=== PATIENT | female | born 1965 | race Two or more races ===

== ENCOUNTER 2021-08-16 11:01 | Emergency (ER) | payer OTHER ==
[~2021-08-16] VITALS: Ht 144.8 cm; Wt 95.3 kg
[2021-08-16 12:09] VITALS: BP 145/90
[2021-08-16] MEDS ORDERED: ACETAMINOPHEN 325 MG TAB PO ONE (12:30)
[2021-08-16] MEDS ORDERED: ACE3T PO (12:32)
== END 2021-08-16 13:19 | disposition home or self-care (01) ==
LOC: ER 11:01
DX: S83.91XA Sprain of unspecified site of right knee, initial encounter (principal); E11.9 Type 2 diabetes mellitus without complications; I10 Essential (primary) hypertension; W19.XXXA Unspecified fall, initial encounter; Y93.89 Activity, other specified; Y92.89 Other specified places as the place of occurrence of the external cause; Y99.8 Other external cause status
CPT/HCPCS: 73562

== ENCOUNTER 2023-09-11 15:47 | Emergency (ER) | payer OTHER ==
[~2023-09-11] VITALS: Ht 152.4 cm; Wt 103.1 kg
[~2023-09-11 15:47] MED LIST: AMIT100T6 PO; ATOR20TA50 PO; BACL10TA PO; BACL20TA PO; DICL50TA4 PO; DULO1CAP5 PO; ENAL1TAB47 PO; GLIP5TAB21 PO; HYDR-4611; HYDRX10T PO; LEVO500T91 PO; LID35TP TOP; LIDO1.8P TOP; MET500T PO; METF-371 PO; METO-289 PO; PREG150C63 PO; QUET50TA27 PO; ZOFR4T PO
[2023-09-11 16:28] LABS: Basophils # (auto) 0 10 ^3/uL (0-0.2); Basophils % (auto) 0.2 % (0.0-2.0); Eosinophils # (auto) 0.1 10 ^3/uL (0-0.8); Eosinophils % (auto) 1.1 % (0.0-7.0); Hematocrit 39.5 % (36.0-46.0); Hemoglobin 13.3 g/dL (12.2-16.2); Lymphocytes # (auto) 1.1 10 ^3/uL (0.4-5.4); Lymphocytes % (auto) 9.2 % (10.0-50.0); Mean Corpuscular Hemoglobin 29.2 pg (28.0-32.0); Mean Corpuscular Hgb Conc. 33.6 g/dL (32.0-36.0); Mean Corpuscular Volume 86.9 fL (80.0-100.0); Monocytes # (auto) 0.4 10 ^3/uL (0-1.3); Monocytes % (auto) 3.5 % (0.0-12.0); Neutrophils # (auto) 10.2 10 ^3/uL (1.6-8.6); Red Blood Cells 4.55 10^6/uL (4.0-5.20); Red Cell Distribution Width 13.8 % (11.8-14.3); White Blood Cell 11.8 10^3/uL (4.4-10.8)
[2023-09-11 16:57] LABS: Alanine Aminotransferase 32 U/L (7-40); Albumin 4.5 g/dL (3.2-4.8); Alkaline Phosphatase 174 U/L (46-116); Anion Gap 9 (5-15); Aspartate Aminotransferase 19 U/L (13-40); BUN/Creatinine Ratio 9.6 (10.0-20.0); Bilirubin, Total 0.6 mg/dL (0.2-1.0); Blood Urea Nitrogen 9 mg/dL (9-23); Calcium 9.7 mg/dL (8.7-10.4); Carbon Dioxide 24 mmol/L (20-30); Chloride 103 mmol/L (98-107); Glucose 265 mg/dL (74-106); Lipase 27 U/L (12-53); Potassium 3.5 mmol/L (3.5-5.1); Sodium 136 mmol/L (136-145); Total Protein 7.5 g/dL (5.7-8.2)
[2023-09-11 18:22] LABS: Urine Bacteria FEW /hpf (None Seen); Urine Blood Negative /uL (Negative); Urine Budding Yeast OCCASIONAL /hpf (None Seen); Urine Clarity Turbid (Clear); Urine Color Yellow (Yellow); Urine Hyaline Cast MANY /lpf (0 - 2); Urine Mucus FEW (None Seen); Urine Protein, UAD 1+ (Negative); Urine Specific Gravity 1.027 (1.001-1.035); Urine Urobilinogen 4 mg/dL (Negative); Urine WBC 24 /hpf (0 - 5); Urine pH 5.5 (5.0-9.0)
[2023-09-11] MEDS ORDERED: CEPH500C PO (19:24)
[2023-09-11] MEDS ORDERED: ZOFR4T PO (19:24)
[2023-09-11] MEDS ORDERED: IBUP1TAB5 PO (19:24)
[2023-09-11] MEDS: SODIUM CHLORIDE 0.9% 1,000 ML IV ONE (19:49)
[2023-09-11] MEDS: cefTRIAXone 1GM/50ML D5W 50 ML IV ONE (19:55)
[2023-09-11] MEDS: DICYCLOMINE HCL (10MG/ML) 2 ML AMPULE IM ONE (20:00)
[2023-09-11] MEDS: PANTOPRAZOLE 40 MG/10 ML VIAL INJ IV ONE (20:06)
[2023-09-11] MEDS: diphenhdrAMINE HCL 50 MG/1 ML VL IV ONE (20:06)
[2023-09-11] MEDS: ONDANSETRON HCL 4 MG/2 ML VIAL IV ONE (20:06)
[2023-09-11 20:40] VITALS: BP 146/85; PULSE 105; RESP 12; TEMP 97.9; O2SAT 96
== END 2023-09-11 19:16 | disposition home or self-care (01) ==
LOC: ER 15:47
DX: R16.2 Hepatomegaly with splenomegaly, not elsewhere classified (principal); N39.0 Urinary tract infection, site not specified; R10.33 Periumbilical pain; R51.9 Headache, unspecified; I10 Essential (primary) hypertension; E11.9 Type 2 diabetes mellitus without complications; Z98.890 Other specified postprocedural states; Z79.899 Other long term (current) drug therapy
CPT/HCPCS: 36415; 74176; 80053; 81001; 83690; 85025; 96365; 96372; 96375; 99285; C9113; J0500; J0696; J1200; J2405

== ENCOUNTER 2024-09-24 12:51 | Inpatient (IN) | payer OTHER ==
[~2024-09-24] VITALS: Ht 152.4 cm; Wt 106.0 kg
[~2024-09-24 12:51] MED LIST changes: +CEPH500C PO; +IBUP1TAB5 PO
--- NOTE | 2024-09-24 13:18 | ED.PDOC ---
General HPI Comments 59 y/o F, with PMHx of HTN and DM presents to the ED for CC of flank pain. Patient states, she has been experiencing flank pain with associated symptoms of of dysuria and vaginal itchiness xdays. Patient complains,of current 10/10 pain with urination. Patient denies hematuria, back pain, fever, or chills. No other symptoms or modifying factors present at this time. Time Seen by MD: 13:00 Primary Care Provider: MAL Reviewed notes: Nurses Notes, Medications, Allergies Allergies: Coded Allergies: NO KNOWN ALLERGIES (Unverified , 08/16/21) Home Meds Active Scripts Ondansetron Odt 4MG Tab (ZOFRAN PO) 4 Mg Tb, 1 TAB PO Q8HPRN PRN, #10 TAB as needed for nausea vomiting ODT TAB-DISSOLVE IN MOUTH, THEN SWALLOW Prov:GAYLEFERNANDAALDA Q [employer] 09/11/23 Ibuprofen Micronized (Ibuprofen) 600 Mg Tab, 1 TAB PO Q8HPRN PRN, #20 TAB as needed for pain Prov:BENI GAYLEA Q [employer] 09/11/23 Cephalexin Monohydrate (Cephalexin) 500 Mg Cap, 1 CAP PO QID for 10 Days, #40 CAP Prov:GAYLEFERNANDAALDA Q [employer] 09/11/23 Ondansetron Odt 4MG Tab (ZOFRAN PO) 4 Mg Tb, 4 MG PO Q8HPRN PRN, #30 TAB ODT TAB-DISSOLVE IN MOUTH, THEN SWALLOW Prov:KERRY CARDOZO MD 10/13/22 Levofloxacin Hemihydrate (LEVOFLOXACIN) 500 Mg Tab, 1 TAB PO DAILY, #10 TAB Prov:KERRY CARDOZO MD 10/13/22 Metronidazole (Metronidazole) 500 Mg Tab, 500 MG PO TID, #30 TAB Prov:KERRY CARDOZO MD 10/13/22 Reported Medications Hydrocodone-Acetaminophen (Hydrocodone Bitartrate/AC 10-300 mg) 1 Tab Tab 10/01/22 Atorvastatin Calcium (ATORVASTATIN CALCIUM) 20 Mg Tab, 1 TAB PO 10/01/22 Metoprolol Succinate (Metoprolol Succinate Er) 50 Mg Tab, 1 TAB PO DAILY 10/01/22 Glipizide (Glipizide) 5 Mg Tab, 1 TAB PO DAILY 10/01/22 Diclofenac Sodium (Diclofenac Sodium Ec) 50 Mg Tab, 1 TAB PO TID PRN for pain 10/01/22 Amitriptyline Hcl (Amitriptyline Hcl) 100 Mg Tab, 1 TAB PO 10/01/22 Lidocaine (Ztlido) 1.8 % Pad, 1 PATCH TOP DAILY 10/01/22 Lidocaine Hcl (Lidocaine) 5 % Oin, TOP 10/01/22 Enalapril Maleate (Enalapril Maleate) 10 Mg Tab, 1 TAB PO DAILY 10/01/22 Metformin Hydrochloride (Metformin Hcl) 850 Mg Tab, 1 TAB PO BID 10/01/22 Baclofen (Baclofen) 20 Mg Tab, 1 PO DAILY 10/01/22 Baclofen (Baclofen) 10 Mg Tab, 1 TAB PO for muscle spasm 10/01/22 Duloxetine HCl (Duloxetine HCl) 30 Mg Cap, 3 CAP PO DAILY 10/01/22 Hydroxyzine Hcl (Hydroxyzine Hcl) 10 Mg Tab, 1 TAB PO TID 10/01/22 Quetiapine Fumerate (QUETIAPINE FUMARATE) 50 Mg Tab, PO 10/01/22 Pregabalin (Pregabalin) 150 Mg Cap, 1 CAP PO TID 10/01/22 Information Source: Patient Mode of Arrival: Ambulatory Severity: Moderate Inability to void: None Timing: Days Duration: Since onset Prehospital treatment: None Onset: Spontaneous Symptoms: Dysuria History of: None Location: (L)Flank Modifying factors: None associated signs and symptoms: Flank Pain Past Medical History PAST MEDICAL HISTORY: DM, HTN Surgical History: Cholecystectomy, [employer] History: Denies all [employer] Hx Family History Family History: Unknown Social History Smoker: Non-Smoker Alcohol: Denies ETOH Use Drugs: Denies Drug Use Lives In: Home Constitutional: denies: chills, diaphoresis, fatigue, fever, malaise, sweats, weakness, others EENTM: denies: blurred vision, double vision, ear bleeding, ear discharge, ear drainage, ear pain, ear ringing, eye pain, eye redness, hearing loss, mouth pain, mouth swelling, nasal discharge, nose bleeding, nose congestion, nose pain, photophobia, tearing, throat pain, throat swelling, voice changes, others Respiratory: denies: cough, hemoptysis, orthopnea, SOB at rest, shortness of breath, SOB with excertion, stridor, wheezing, others Cardiovascular: denies: chest pain, dizzy spells, diaphoresis, Dyspnea on exertion, edema, irregular heart beat, left arm pain, lightheadedness, palp itations, PND, syncope, others Gastrointestinal: denies: abdomen distended, abdominal pain, blood streaked bowels, constipated, diarrhea, dysphagia, difficulty swallowing, hematemesis, melena, nausea, poor appetite, poor fluid intake, rectal bleeding, rectal pain, vomiting, others Genitourinary: reports: dysuria, flank pain, others (vaginal itch); denies: abnormal vagina bleeding, burning, dyspareunia, frequency, hematuria, incontinence, pain, , vagina discharge, urgency Neurological: denies: dizziness, fainting, headache, left sided numbness, left sided weakness, numbness, paresthesia, pre-existing deficit, right sided num bness, right sided weakness, seizure, speech problems, tingling, tremors, weakness, others Musculoskeletal: denies: back pain, gout, joint pain, joint swelling, muscle pain, muscle stiffness, neck pain, others Integumetry: denies: bruises, change in color, change in hair/nails, dryness, laceration, lesions, lumps, rash, wounds, others Allergic/Immunocompromised: denies: Difficulty Healing, Frequent Infections, Hives, Itching, others Hematologic/Lymphatic: denies: anemia, blood clots, easy bleeding, easy bruising, swollen glands, others Endocrine: denies: excessive hunger, excessive sweating, excessive thirst, excessive urination, flushing, intolerance to cold, intolerance to heat, unexplained weight gain, unexplained weight loss, others Psychiatric: denies: anxiety, bipolar disorder, depression, hopeless, panic disorder, schizophrenia, sleepless, suicidal, others All Other Systems: Reviewed and Negative Physical Exam General Appearance: Moderate Distress HEENT: Normal ENT Inspection, Pharynx Normal, TMs Normal Neck: Full Range of Motion, Non-Tender, Normal, Normal Inspection Respiratory: Chest Non-Tender, Lungs Clear, No Accessory Muscle Use, No Respiratory Distress, Normal Breath Sounds Cardiovascular: No Edema, No JVD, No Murmur, No Gallop, Normal Peripheral Pulses, Regular Rate/Rhythm Breast Exam: Deferred Gastrointestinal: No Organomegaly, Non Tender, No Pulsatile Mass, Normal Bowel Sounds, Soft Genitalia: Deferred Pelvic: Deferred Rectal: Deferred Extremities: No calf tenderness, Normal capillary refill, Normal inspection, Normal range of motion, Non-tender, No pedal edema Musculoskeletal : Apperance: Normal Neurologic: Alert, channeler runner II-XII nml as Tested, No Motor Deficits, Normal Affect, Normal Mood, No Sensory Deficits Cerebellar Function: Normal Reflexes: Normal Skin: Dry, Normal Color, Warm Peripheral Pulses: 3+ Radial (R), 3+ Radial (L) Lymphatic: No Adenopathy Was a procedure done? Was a procedure done?: No Differential Diagnosis Kidney stone (Female): Pyelonephritis, Urinary obstruction, Urolithiasis Kidney stone (Male): N/A Penile/Scrotal: N/A Urinary Problem (Male): N/A Urinary Problem (Female): Vaginitis X-Ray, Labs, Meds, VS Vital Signs Date Time Temp Pulse Resp B/P (MAP) Pulse Ox O2 Delivery O2 Flow Rate FiO2 09/24/24 14:18 118 16 96 Room Air* 0 21 09/24/24 14:11 118 16 142/89 (106) 96 09/24/24 13:00 98.6 135 20 122/74 (90) 95 98.6 Lab Test 09/24/24 13:19 09/24/24 13:00 Range/Units White Blood Count 8.6 4.4-10.8 10^3/uL Red Blood Count 5.21 H 4.0-5.20 10^6/uL Hemoglobin 15.1 12.2-16.2 g/dL Hematocrit 44.9 36.0-46.0 % Mean Corpuscular Volume 86.1 80.0-100.0 fL Mean Corpuscular Hemoglobin 28.9 28.0-32.0 pg Mean Corpuscular Hemoglobin Concent 33.6 32.0-36.0 g/dL Red Cell Distribution Width 14.3 11.8-14.3 % Platelet Count 264 140-450 10^3/uL Mean Platelet Volume 9.7 6.9-10.8 fL Neutrophils (%) (Auto) 64.5 37.0-80.0 % Lymphocytes (%) (Auto) 28.8 10.0-50.0 % Monocytes (%) (Auto) 3.4 0.0-12.0 % Eosinophils (%) (Auto) 2.7 0.0-7.0 % Basophils (%) (Auto) 0.6 0.0-2.0 % Neutrophils # (Auto) 5.5 1.6-8.6 10 ^3/uL Lymphocytes # (Auto) 2.5 0.4-5.4 10 ^3/uL Monocytes # (Auto) 0.3 0-1.3 10 ^3/uL Eosinophils # (Auto) 0.2 0-0.8 10 ^3/uL Basophils # (Auto) 0.1 0-0.2 10 ^3/uL Nucleated Red Blood Cells 0.1 % Sodium Level 137 136-145 mmol/L Potassium Level 3.9 3.5-5.1 mmol/L Chloride Level 100 98-107 mmol/L Carbon Dioxide Level 26 20-31 mmol/L Anion Gap 11 5-15 Blood Urea Nitrogen 8 L 9-23 mg/dL Creatinine 0.95 0.550-1.02 mg/dL Glomerular Filtration Rate Calc 70 >90 mL/min BUN/Creatinine Ratio 8.4 L 10.0-20.0 Serum Glucose 299 H 74-106 mg/dL Calcium Level 9.7 8.7-10.4 mg/dL Urine Color Light-orange Yellow Urine Clarity Ex.turbid Clear Urine pH 5.5 5.0-9.0 Urine Specific [place] 1.025 1.001-1.035 Urine Protein 1+ H Negative Urine Ketones Trace Negative Urine Blood Trace H Negative /uL Urine Nitrite 2+ H Negative Urine Bilirubin Negative Negative Urine Urobilinogen Normal Negative mg/dL Urine Leukocyte Esterase 3+ Negative /uL Urine RBC 7 0 - 4 /hpf Urine WBC Clumps Present None Seen /hpf Urine Microscopic WBC 1699 H 0-5 /HPF Urine Squamous Epithelial Cells Many <5 /hpf Urine Bacteria Few H None Seen /hpf Urine Hyaline Casts Mod 0 - 2 /lpf Urine Mucus Few None Seen Urine Glucose 4+ H Normal mg/dL Current Medications Medications (Trade) Dose Ordered Sig/Ngoc Route Start Time Stop Time Status Last Admin Ketorolac Tromethamine (Toradol Injection) 60 mg ONCE ONCE IM 09/24/24 13:15 09/24/24 13:16 DC 09/24/24 14:16 Patient alert. Complaining of urinary symptoms. Vitals stable. Answering questions. Blood sugar elevated. Urinalysis shows severe infection. Establish intravenous access. Was given fluids. Was given Bactrim. WBC within normal limits. Explained to the patient that she will need to be admitted because of the nature of her infection. Continue monitoring. Time of 1ST Reevaluation: 13:30 Reevaluation 1ST: Unchanged Patient Education/Counseling: Diagnosis, Treatment Family Education/Counseling: No Family Present SEPSIS Sepsis Screen Physician Orders Zofran (09/24/24 14:30) 0.9% Nacl 1 Liter Bolus (09/24/24 14:30) Morphine Sulfate (09/24/24 14:30) Urine Bacterial Culture (09/24/24 14:26) 0.9% Ns 30mls/Kg (09/24/24 14:30) Bactrim Iv Septra Sulfam/Trim (09/24/24 14:30) Vital Signs Date Time Temp Pulse Resp B/P (MAP) Pulse Ox O2 Delivery O2 Flow Rate FiO2 09/24/24 14:18 118 16 96 Room Air* 0 21 09/24/24 14:11 118 16 142/89 (106) 96 09/24/24 13:00 98.6 135 20 122/74 (90) 95 98.6 Laboratory Tests Test 09/24/24 13:19 White Blood Count 8.6 10^3/uL (4.4-10.8) Medications Medications Dose Ordered Sig/Ngoc Route Start Time Stop Time Status Last Admin Dose Admin Ketorolac Tromethamine 60 mg ONCE ONCE IM 09/24/24 13:15 09/24/24 13:16 DC 09/24/24 14:16 Departure 1 Departure Time of Disposition: 13:39 Impression: Primary Impression: Uncontrolled diabetes mellitus Qualified Codes: E13.65 - Other specified diabetes mellitus with hyperglycemia Additional Impression: Sepsis due to urinary tract infection Disposition: ADMITTED INPATIENT Admit to: Med Surg Condition: Guarded Critical Care Note Critical Care Time?: No Stability Stability form required: No Heart Score Heart Score: Heart Score Response (Comments) Value History N/A 0 EKG N/A 0 Age N/A 0 Risk Factors N/A 0 Troponin N/A 0 Total 0 I personally scribed for KAYKAY SCOTT MD ([email or web address]) on 09/24/24 at 13:18. Electronically submitted by Nivia Amaya ([email or web address]). KAYKAY SCOTT MD Sep 24, 2024 13:18
[2024-09-24 13:37] LABS: Hematocrit 44.9 % (36.0-46.0); Hemoglobin 15.1 g/dL (12.2-16.2); Mean Corpuscular Hemoglobin 28.9 pg (28.0-32.0); Mean Corpuscular Volume 86.1 fL (80.0-100.0); Nucleated Red Blood Cells % 0.1 %
[2024-09-24 13:42] LABS: Chloride 100 mmol/L (98-107); Potassium 3.9 mmol/L (3.5-5.1); Sodium 137 mmol/L (136-145)
[2024-09-24 13:43] LABS: Anion Gap 11 (5-15); Calcium 9.7 mg/dL (8.7-10.4); Carbon Dioxide 26 mmol/L (20-31)
[2024-09-24 13:48] LABS: BUN/Creatinine Ratio 8.4 (10.0-20.0)
[2024-09-24 13:49] LABS: Blood Urea Nitrogen 8 mg/dL (9-23); Glucose 299 mg/dL (74-106)
[2024-09-24 14:02] LABS: Urine Protein, UAD 1+ (Negative); Urine WBC Clumps PRESENT /hpf (None Seen)
[2024-09-24] MEDS: KETOROLAC TROMETH 60MG/2ML VIAL IM ONE (14:16)
[2024-09-24 14:18] VITALS: PULSE 118; RESP 16; O2SAT 96
[2024-09-24] MEDS: SODIUM CHLORIDE 0.9% 1,000 ML IV ONE (15:35)
[2024-09-24] MEDS: SODIUM CHLORIDE 0.9% 1,000 ML IVB ONE (16:15)
[2024-09-24] MEDS: ONDANSETRON HCL 4 MG/2 ML VIAL IV ONE (16:16)
[2024-09-24] MEDS: MORPHINE SULFATE 4 MG/ML SYR/VIAL IV ONE (16:17)
[2024-09-24] MEDS: SULFAMETH-TRIMETH 80/16MG-ML 10 ML in D5W 5% 250 ML IV ONE (16:26)
[2024-09-24] MEDS ORDERED: ONDANSETRON HCL 4 MG/2 ML VIAL IV PRN (17:00)
[2024-09-24] MEDS ORDERED: DEXTROSE (50%) 50ML SYRG IV PRN (17:00)
[2024-09-24] MEDS ORDERED: DOCUSATE SOD 100 MG CAP PO PRN (17:00)
[2024-09-24] MEDS ORDERED: hydrALAZINE HCL 20 MG/ML VL IV PRN (17:00)
--- NOTE | 2024-09-24 17:48 | DVHHP2 ---
History of Present Illness Reason for Visit: Uncontrolled diabetes mellitus History of Present Illness The patient is a 59-year-old female with past medical history of diabetes mellitus, hypertension, and hyperlipidemia who presented to [facility] ED with complaint of flank pain. Patient reports she has been exper iencing flank pain for the past 4 days, associated with dysuria, vaginal itching, rating pain 10/10 numeric scale with urination, shortness of breaths, getting worse that prompted this visit. Patient was seen and evaluated in the ED, laboratory data shows WBC 8.6, platelets 264, sodium 137, potassium 3.9, BUN 8, creatinine 0.95, glucose 299, calcium 9.7, blood pressure 148/86, heart rate 135 trending down to 72, temperature 97.6 F, O2 saturation 96% on oxygen. Urinalysis positive for urinary tract infection. Patient was started on IV antibiotic regimen Rocephin, please see medication orders section in the computer. On my assessment, patient denied chest pain, no headache, no dizziness, currently on oxygen, no abdominal pain, no diarrhea, no nausea, no vomiting, no fever, no chills. Patient was admitted for further evaluation and medical management. Past Medical History DM, HTN Past Surgical History Cholecystectomy, Family History Reviewed, noncontributory to the management of this case. Past Social History The patient lives at home, denies smoking, alcohol or illicit drugs abuse. Review of Systems Constitutional: Yes: Weakness; No: Fever, Chills, Sweats, Malaise, Other Eyes: No: Pain, Vision change, Conjunctivae inflammation, Eyelid inflammation, Other, Redness ENT: No: Ear pain, Ear discharge, Nose pain, Nose discharge, Nose congestion, Mouth pain, Mouth swelling, Throat pain, Throat swelling, Other Respiratory: Shortness of breath; No: Cough, Dry, SOB with excertion, Wheezing, Hemoptysis, Pleuritic Pain, Sputum, Wheezing, Other Cardiovascular: No: Chest Pain, Palpitations, Orthopnea, Paroxysmal Noc. Dyspnea, Edema, Lt Headedness, Other Gastrointestinal: No: Nausea, Vomiting, Abdominal Pain, Diarrhea, Constipation, Melena, Hematochezia, Other Genitourinary: Dysuria; No Frequency, No Incontinence, No Hematuria, No Retention; Other (Flank pain, vaginal itch.) Musculoskeletal: No: other, neck pain, shoulder pain, arm pain, back pain, hand pain, leg pain, foot pain Skin: No: Rash, Lesions, Jaundice, Bruising, Other Neurological: No: Weakness, Numbness, Incoordination, Change in speech, Confusion, Seizures, Other Allergies: Coded Allergies: NO KNOWN ALLERGIES (Unverified , 08/16/21) Medications Current Medications Medications Dose Ordered Sig/Ngoc Route Start Time Stop Time Status Last Admin Dose Admin Atorvastatin Calcium 20 mg HS PO 09/24/24 22:00 Hydralazine HCl 10 mg Q6HP PRN IV 09/24/24 17:00 Metoprolol Tartrate 25 mg BID PO 09/24/24 22:00 Amlodipine Besylate 5 mg DAILY PO 09/25/24 10:00 Ceftriaxone Sodium 50 ml @ 100 mls/hr DAILY@09 IV 09/25/24 09:00 Diagnostic Test (Pha) 1 strip IQ4HR 09/24/24 20:00 Insulin Human Regular IQ4HR SC 09/24/24 20:00 Dextrose 50 ml UD PRN IV 09/24/24 17:00 Sodium Chloride 1,000 ml @ 60 mls/hr [id number] IV 09/24/24 17:00 Acetaminophen/ Hydrocodone Bitart 1 tab Q4HP PRN PO 09/24/24 17:00 Ondansetron HCl 4 mg Q4HP PRN IV 09/24/24 17:00 Docusate Sodium 100 mg BIDPRN PRN PO 09/24/24 17:00 Acetaminophen 650 mg Q6HP PRN PO 09/24/24 17:00 Exam Vital Signs Vital Signs Date Time Temp Pulse Resp B/P (MAP) Pulse Ox O2 Delivery O2 Flow Rate FiO2 09/24/24 16:17 71 18 148/86 09/24/24 16:08 97.8 96 97.8 09/24/24 16:08 Nasal Cannula 2.0 09/24/24 14:18 21 General Appearance: Alert, Oriented X3, Cooperative, No acute distress HEENT: Atraumatic, PERRLA, EOMI, Mucous membr. moist/pink Respiratory: Normal air movement, Other (On oxygen) Cardiovascular: Regular rate, Normal S1, Normal S2, No murmurs Abdominal: Normal bowel sounds, Soft, No tenderness, No hepatospenomegaly, No masses Extremities: No clubbing, No cyanosis, No edema, Normal pulses, No t enderness/swelling Skin: No rashes, No breakdown, No significant lesion Neuro: Normal speech, Normal tone, Sensation intact, Cranial nerves 3-12 NL, Reflexes 2+, Other (Generalized weakness) Psych/Mental Status: Mental status NL, Mood NL Labs/Xrays Labs Test 09/24/24 13:19 09/24/24 13:00 Range/Units White Blood Count 8.6 4.4-10.8 10^3/uL Red Blood Count 5.21 H 4.0-5.20 10^6/uL Hemoglobin 15.1 12.2-16.2 g/dL Hematocrit 44.9 36.0-46.0 % Mean Corpuscular Volume 86.1 80.0-100.0 fL Mean Corpuscular Hemoglobin 28.9 28.0-32.0 pg Mean Corpuscular Hemoglobin Concent 33.6 32.0-36.0 g/dL Red Cell Distribution Width 14.3 11.8-14.3 % Platelet Count 264 140-450 10^3/uL Mean Platelet Volume 9.7 6.9-10.8 fL Neutrophils (%) (Auto) 64.5 37.0-80.0 % Lymphocytes (%) (Auto) 28.8 10.0-50.0 % Monocytes (%) (Auto) 3.4 0.0-12.0 % Eosinophils (%) (Auto) 2.7 0.0-7.0 % Basophils (%) (Auto) 0.6 0.0-2.0 % Neutrophils # (Auto) 5.5 1.6-8.6 10 ^3/uL Lymphocytes # (Auto) 2.5 0.4-5.4 10 ^3/uL Monocytes # (Auto) 0.3 0-1.3 10 ^3/uL Eosinophils # (Auto) 0.2 0-0.8 10 ^3/uL Basophils # (Auto) 0.1 0-0.2 10 ^3/uL Nucleated Red Blood Cells 0.1 % Sodium Level 137 136-145 mmol/L Potassium Level 3.9 3.5-5.1 mmol/L Chloride Level 100 98-107 mmol/L Carbon Dioxide Level 26 20-31 mmol/L Anion Gap 11 5-15 Blood Urea Nitrogen 8 L 9-23 mg/dL Creatinine 0.95 0.550-1.02 mg/dL Glomerular Filtration Rate Calc 70 >90 mL/min BUN/Creatinine Ratio 8.4 L 10.0-20.0 Serum Glucose 299 H 74-106 mg/dL Calcium Level 9.7 8.7-10.4 mg/dL Urine Color Light-orange Yellow Urine Clarity Ex.turbid Clear Urine pH 5.5 5.0-9.0 Urine Specific [place] 1.025 1.001-1.035 Urine Protein 1+ H Negative Urine Ketones Trace Negative Urine Blood Trace H Negative /uL Urine Nitrite 2+ H Negative Urine Bilirubin Negative Negative Urine Urobilinogen Normal Negative mg/dL Urine Leukocyte Esterase 3+ Negative /uL Urine RBC 7 0 - 4 /hpf Urine WBC Clumps Present None Seen /hpf Urine Microscopic WBC 1699 H 0-5 /HPF Urine Squamous Epithelial Cells Many <5 /hpf Urine Bacteria Few H None Seen /hpf Urine Hyaline Casts Mod 0 - 2 /lpf Urine Mucus Few None Seen Urine Glucose 4+ H Normal mg/dL Assessment/Plan Assessment/Plan Uncontrolled diabetes mellitus Sinus tachycardia Shortness of breaths Generalized weakness Urinary tract infection Other specified diabetes mellitus with hyperglycemia Plan 1. Admit to telemetry unit 2. Breathing treatment 3. Pain control management 4. IV antibiotic management 5. Management of fluids and electrolytes 6. Consultation for hospitalist 7. Diagnostic test chest x-ray 8. DVT prophylaxis on SCDs 9. Repeat labs CBC, CMP in a.m. 10. Home medication reviewed and reconciled 11. Continue with current medical management 12. Treatment plan discussed with patient and RN. Patient verbalized under standing. Plan discussed with: Patient, Other (RN) My Orders Orders - ALBERT FRAZIER DNP Procedure Category Date Status Time Atorvastatin (Lipitor) PHA 09/24/24 In Process 22:00 Hydralazine Injection PHA 09/24/24 In Process (Apresoline Inject 17:00 Metoprolol Tartrate PHA 09/24/24 In Process Tablet (Lopressor Ta 22:00 Amlodipine Tablet PHA 09/25/24 In Process (Norvasc Tablet) 10:00 Ceftriaxone 1gm/50ml PHA 09/25/24 In Process D5w (Rocephin) 09:00 Consistent DIET 09/24/24 Transmitted Carb(Ccho)Diabetes Dinner Glucose Blood PHA 09/24/24 In Process (Accu-Chek Comfort 20:00 Insulin R (Human) PHA 09/24/24 In Process (Insulin R) 20:00 Dextrose 50% Syringe PHA 09/24/24 In Process 17:00 Allergies HELIO 09/24/24 In Process 16:49 Code Status CODE 09/24/24 Transmitted 16:49 Sodium Chloride 0.9% PHA 09/24/24 In Process 17:00 Oxygen Per Hour RT 09/24/24 Transmitted 16:49 Hydrocodone-Acet PHA 09/24/24 In Process 5/325mg Tab ([place] 17:00 Ondansetron Hcl PHA 09/24/24 In Process (Zofran) 17:00 Docusate Sodium PHA 09/24/24 In Process Capsule (Colace 17:00 Complete Blood Count LAB 09/25/24 Verified 04:00 Comprehensive LAB 09/25/24 Verified Metabolic Panel 04:00 Condition: Serious HELIO 09/24/24 In Process 16:49 Acetaminophen Tablet [facility] 09/24/24 In Process (Tylenol Tablet) 17:00 Bedrest With Bathroom HELIO 09/24/24 In Process Privileg 16:49 Sequential [facility] 09/24/24 In Process Compression Device Admit ADMIT 09/24/24 Verified 17:47 Nitroglycerin [facility] 09/24/24 Verified Sublingual (Ntrostat 18:00 Morphine Sulfate [facility] 09/24/24 Verified Injection 18:00 Stat Ekg For Chest [facility] 09/24/24 Verified Pain 17:47 Notify Md Of Changes [facility] 09/24/24 Verified From Base 17:47 Automatic Centrifugal Station Operator For [facility] 09/24/24 Verified 24 Hours 17:47 Emergency Dysrhythmia [facility] 09/24/24 Verified Protocol 17:47 Rhythm Strips Once [facility] 09/24/24 Verified Every Shift 17:47 Oxygen By Nasal 09/24/24 Verified Cannula 17:47 Problem List: (1) Uncontrolled diabetes mellitus (2) Shortness of breath (3) Sinus tachycardia (4) Urinary tract infection (5) Generalized weakness (6) Other specified diabetes mellitus with hyperglycemia Date of Service: Sep 24, 2024 Billing Provider: ALBERT FRAZIER DNP Common Visit Codes: [id number] INP/OBS CARE (HIGH) ALBERT FRAZIER DNP Sep 24, 2024 17:48
[2024-09-24] MEDS ORDERED: NITROGLYCERIN 0.4 MG SL TAB SL PRN (18:00)
[2024-09-24] MEDS ORDERED: MORPHINE SULFATE INJ 2 MG/ml SYRG IV PRN (18:00)
[2024-09-24] MEDS: SODIUM CHLORIDE 0.9% 1,000 ML IV SCH (19:17)
[2024-09-24] MEDS: ACCU-CHEK COMFORT CURVE STRIP VI SCH (20:13)
[2024-09-24] MEDS: HYDROcodone-ACET 5/325MG TAB PO PRN (20:14)
[2024-09-24] MEDS: InsuLIN REG 1unit/0.01ml Soln (100units/ml) SC SCH (20:14)
[2024-09-24 22:43] VITALS: BP 127/71; PULSE 85; RESP 18; TEMP 98.3; O2SAT 98
[2024-09-24 23:09] VITALS: RESP 18; O2SAT 96
[2024-09-24] MEDS: ATORVASTATIN 20 MG TAB PO SCH (23:58)
[2024-09-24] MEDS: METOPROLOL TARTRATE 25 MG TAB PO SCH (23:59)
[2024-09-25 01:00] VITALS: BP 111/72; PULSE 76; RESP 18; TEMP 97.4; O2SAT 98
[2024-09-25 05:00] VITALS: BP 94/56; PULSE 71; RESP 17; TEMP 97; O2SAT 96
[2024-09-25 05:51] LABS: Hematocrit 40.3 % (36.0-46.0); Hemoglobin 13.5 g/dL (12.2-16.2); Mean Corpuscular Hemoglobin 29.0 pg (28.0-32.0); Mean Corpuscular Volume 86.3 fL (80.0-100.0); Nucleated Red Blood Cells % 0.0 %
[2024-09-25 06:10] LABS: Alanine Aminotransferase 22 U/L (7-40); Albumin 3.8 g/dL (3.2-4.8); Anion Gap 7 (5-15); BUN/Creatinine Ratio 14.0 (10.0-20.0); Bilirubin, Total 0.5 mg/dL (0.2-1.0); Blood Urea Nitrogen 15 mg/dL (9-23); Carbon Dioxide 29 mmol/L (20-31); Chloride 100 mmol/L (98-107); Potassium 3.6 mmol/L (3.5-5.1); Sodium 136 mmol/L (136-145); Total Protein 6.1 g/dL (5.7-8.2)
[2024-09-25 06:20] LABS: Alkaline Phosphatase 125 U/L (46-116); Calcium 8.5 mg/dL (8.7-10.4); Glucose 116 mg/dL (74-106)
[2024-09-25 09:00] VITALS: BP 102/71; PULSE 78; RESP 19; TEMP 97.2; O2SAT 98
[2024-09-25] MEDS: cefTRIAXone 1GM/50ML D5W 50 ML IV SCH (09:31)
[2024-09-25 10:38] LABS: Cholesterol 153 mg/dL (< 200)
[2024-09-25 10:39] LABS: HDL Cholesterol 33 mg/dL (40-59); Triglycerides 230 mg/dL (< 150)
[2024-09-25] MEDS ORDERED: DEXTROSE (50%) 50ML SYRG IV PRN (10:45)
[2024-09-25] MEDS: ACCU-CHEK COMFORT CURVE STRIP VI SCH (11:42)
[2024-09-25] MEDS: InsuLIN REG 1unit/0.01ml Soln (100units/ml) SC SCH ×2 (11:42→21:55)
[2024-09-25] MEDS: FLUCONAZOLE 100 MG TAB PO ONE (11:43)
[2024-09-25 13:00] VITALS: BP 102/65; PULSE 73; RESP 18; TEMP 97.3; O2SAT 95
[2024-09-25] MEDS ORDERED: hydrALAZINE HCL 20 MG/ML VL IV PRN (15:30)
[2024-09-25] MEDS ORDERED: MORPHINE SULFATE INJ 2 MG/ml SYRG IV PRN (15:45)
--- NOTE | 2024-09-25 15:47 | DVHPNRES ---
Progress Note Date Seen: Sep 25, 2024 Resident Creating Document: DANIEL LATIF RESIDENT Medical Necessity Reason Pt with a Central, PICC or Fol: No Subjective Review of Systems Kerline Blackburn a 59-year-old female with past medical history of diabetes mellitus, hypertension, hyperlipidemia and shortness of breath (on home oxygen- 2 liter via nasal cannula) came to the emergency department yesterday with complaints of flank pain. It started 4 days ago and was gradual in onset, non- radiating, rated 10/ 10 in intensity, associated with dysuria, vaginal itching, which worsened and prompted this visit. Patient denies any aggravating or relieving factors. she denies any chest pain, headache, dizziness, diarrhea, vomiting, nausea, fever, chills. PMH: DM, HTN PSH: Cholecystectomy, 3 C - sections, 3 back surgeries for sciatica with metal rods placed in the back Family history: reviewed noncontributory to the management of this case Social history: The patient lives at home with her son and [id number]. she denies smoking, alcohol or illicit drug abuse. Allergies: None ROS: Patient was seen and examined by me in the bedside. She reports improvement in abdominal pain but the vaginal itching is still a lot. Rest of the ROS is normal. Objective vital signs Vital Sign Date Time Temp Pulse Resp B/P (MAP) Pulse Ox O2 Delivery O2 Flow Rate FiO2 09/25/24 13:00 97.3 73 18 102/65 (77) 95 97.3 09/24/24 23:09 Nasal Cannula* 2 28 Total Intake and Output 09/24/24 09/24/24 09/25/24 15:00 23:00 07:00 Intake Total 1260 ml 200 ml Balance 1260 ml 200 ml medications Current Medications Medications Dose Ordered Sig/Ngoc Route Start Time Stop Time Status Last Admin Dose Admin Atorvastatin Calcium 20 mg HS PO 09/24/24 22:00 09/24/24 23:58 20 MG Hydralazine HCl 10 mg Q6HP PRN IV 09/24/24 17:00 Metoprolol Tartrate 25 mg BID PO 09/24/24 22:00 09/25/24 09:31 25 MG Amlodipine Besylate 5 mg DAILY PO 09/25/24 10:00 09/25/24 09:31 5 MG Ceftriaxone Sodium 50 ml @ 100 mls/hr DAILY@09 IV 09/25/24 09:00 09/25/24 09:31 100 MLS/HR Acetaminophen/ Hydrocodone Bitart 1 tab Q4HP PRN PO 09/24/24 17:00 09/25/24 05:24 1 TAB Ondansetron HCl 4 mg Q4HP PRN IV 09/24/24 17:00 Docusate Sodium 100 mg BIDPRN PRN PO 09/24/24 17:00 Acetaminophen 650 mg Q6HP PRN PO 09/24/24 17:00 Nitroglycerin 0.4 mg Q5MINP PRN SL 09/24/24 18:00 Morphine Sulfate 2 mg Q30M PRN IV 09/24/24 18:00 Diagnostic Test (Pha) 1 strip ACHS 09/25/24 11:30 09/25/24 11:42 1 STRIP Insulin Human Regular HS SC 09/25/24 22:00 Insulin Human Regular AC SC 09/25/24 11:30 09/25/24 11:42 6 UNITS Dextrose 50 ml UD PRN IV 09/25/24 10:45 Examination Pt is lying on bed General Appearance: Alert, Oriented X3, Cooperative, Not in acute distress HEENT: Atraumatic, Mucous membranes moist/pink, on 2 liters oxygen via nasal cannula Respiratory: Clear to auscultation, Normal air movement, No added sounds Cardiovascular: Regular rate, Normal S1, Normal S2, No murmurs Abdominal: Active bowel sounds, Soft, no distention, no tenderness, suprapubic and left lower quadrant tenderness present Extremities: No edema, Normal pulses, No tenderness/swelling Skin: No Significant rash, except past surgical scars Neuro: Normal speech, sensorimotor deficits none Psych/Mental Status: Mental status NL, Mood NL Vaginal: mucous membranes moist, hyperemia present, minimal white thin discharge Nurse Malorie was there as form tamping machine operator during examination laboratory and microbiology Laboratory Tests 09/25/24 05:08 Test 09/25/24 05:08 Range/Units Serum Glucose 116 H 74-106 mg/dL Microbiology Date/Time Source Procedure Growth Status 09/24/24 13:00 Voided Urine Urine Culture - Preliminary Resulted Labs and/or images reviewed: Labs reviewed by me, Image(s) reviewed by me Problem List/Assessment/Plan Problem List/Assessment/Plan # Acute complicated UTI - Evident on urinalysis - IVF administered - Rocephin 1 g daily - Urine culture, >100,000 CFU/mL Gram Negative Rods # Vaginal candidiasis possibly due to DM - Fluconazole 200 mg 1 tab given # Uncontrolled DM (HbA1c, 10.8) - Patient was moderate sliding scale insulin - continuously monitor blood glucose - Lipid profile ordered # Essential Hypertension - Closely monitor blood pressure - Amlodipine 5 mg daily, metoprolol 25 mg - Administer hydralazine ordered if SBP >170 mmHg # Mixed hyperlipidemia - Atorvastatin 20 mg continue - Dietary counseling done GI prophylaxis: not indicated DVT prophylaxis: SCDs Diet: diabetic diet Goals of care discussed with the patient for more than 27 minutes: Full code status Case discussed with Dr. Mccray patient and nurse. Plan discussed with: Patient, Other (RN) Date of Service: Sep 25, 2024 Billing Provider: KERRY MCCRAY MD Common Visit Codes: [id number] INP/OBS CARE(HIGH) DANIEL LATIF RESIDENT Sep 25, 2024 15:47 KERRY MCCRAY MD Sep 25, 2024 21:43
[2024-09-25 17:00] VITALS: BP 102/70; PULSE 80; RESP 18; TEMP 97.5; O2SAT 98
[2024-09-25] MEDS: ACETAMINOPHEN 325 MG TAB PO PRN (18:00)
[2024-09-25 21:00] VITALS: BP 99/58; PULSE 81; RESP 18; TEMP 97.4; O2SAT 99
[2024-09-26 01:00] VITALS: BP 101/69; PULSE 70; RESP 18; TEMP 97.2; O2SAT 98
[2024-09-26 05:00] VITALS: BP 119/59; PULSE 86; RESP 18; TEMP 97.2; O2SAT 99
[2024-09-26 05:38] LABS: Chloride 104 mmol/L (98-107); Potassium 4.6 mmol/L (3.5-5.1); Sodium 139 mmol/L (136-145)
[2024-09-26 05:39] LABS: Anion Gap 6 (5-15); Carbon Dioxide 29 mmol/L (20-31)
[2024-09-26 05:40] LABS: Calcium 9.0 mg/dL (8.7-10.4)
[2024-09-26 05:44] LABS: BUN/Creatinine Ratio 12.0 (10.0-20.0); Blood Urea Nitrogen 10 mg/dL (9-23)
[2024-09-26 06:06] LABS: Glucose 208 mg/dL (74-106)
[2024-09-26] MEDS: ERGOCALCIFEROL 50,000 UNIT(1.25MG) CAP PO SCH (07:35)
[2024-09-26] MEDS: diphenhdrAMINE HCL 12.5 MG/5 ML UD PO PRN (07:35)
[2024-09-26] MEDS: DOCUSATE SOD 100 MG CAP PO SCH (07:35)
[2024-09-26] MEDS: INSULIN LANTUS (GLARGINE) 1 /0.01ml (100units/ml) SC SCH (07:44)
[2024-09-26 08:00] VITALS: PULSE 76; RESP 18
[2024-09-26 09:00] VITALS: BP 129/80; PULSE 79; RESP 18; TEMP 99.1; O2SAT 99
[2024-09-26] MEDS ORDERED: DIPH-515 PO (09:40)
[2024-09-26] MEDS ORDERED: AUG875T PO (09:40)
--- NOTE | 2024-09-26 10:08 | DVHDSRES ---
Discharge Summary Date of Admission Resident Creating Document: DANIEL LATIF RESIDENT Sep 24, 2024 at 17:47 Date of Discharge: Sep 26, 2024 Admitting Diagnosis Acute complicated UTI Labs/Diagnostic Data: Laboratory Results Test 09/26/24 04:53 09/25/24 07:50 09/25/24 05:08 09/24/24 13:00 Sodium Level 139 mmol/L (136-145) Potassium Level 4.6 mmol/L (3.5-5.1) Chloride Level 104 mmol/L (98-107) Carbon Dioxide Level 29 mmol/L (20-31) Anion Gap 6 (5-15) Blood Urea Nitrogen 10 mg/dL (9-23) Creatinine 0.83 mg/dL (0.550-1.02) Glomerular Filtration Rate Calc 82 mL/min (>90) BUN/Creatinine Ratio 12.0 (10.0-20.0) Serum Glucose 208 mg/dL (74-106) Calcium Level 9.0 mg/dL (8.7-10.4) Vitamin B12 Level 542 pg/mL (211-911) Vitamin D 25-Hydroxy 18.1 ng/mL (30.0-100) POC Glucose 164 mg/dl (70-106) White Blood Count 9.8 10^3/uL (4.4-10.8) Red Blood Count 4.67 10^6/uL (4.0-5.20) Hemoglobin 13.5 g/dL (12.2-16.2) Hematocrit 40.3 % (36.0-46.0) Mean Corpuscular Volume 86.3 fL (80.0-100.0) Mean Corpuscular Hemoglobin 29.0 pg (28.0-32.0) Mean Corpuscular Hemoglobin Concent 33.6 g/dL (32.0-36.0) Red Cell Distribution Width 14.3 % (11.8-14.3) Platelet Count 256 10^3/uL (140-450) Mean Platelet Volume 9.7 fL (6.9-10.8) Neutrophils (%) (Auto) 61.6 % (37.0-80.0) Lymphocytes (%) (Auto) 29.0 % (10.0-50.0) Monocytes (%) (Auto) 5.9 % (0.0-12.0) Eosinophils (%) (Auto) 3.1 % (0.0-7.0) Basophils (%) (Auto) 0.4 % (0.0-2.0) Neutrophils # (Auto) 6.1 10 ^3/uL (1.6-8.6) Lymphocytes # (Auto) 2.8 10 ^3/uL (0.4-5.4) Monocytes # (Auto) 0.6 10 ^3/uL (0-1.3) Eosinophils # (Auto) 0.3 10 ^3/uL (0-0.8) Basophils # (Auto) 0 10 ^3/uL (0-0.2) Nucleated Red Blood Cells 0.0 % Hemoglobin A1c 10.8 % A1C (<5.7) Total Bilirubin 0.5 mg/dL (0.2-1.0) Aspartate Amino Transferase (AST) 19 U/L (13-40) Alanine Aminotransferase (ALT) 22 U/L (7-40) Alkaline Phosphatase 125 U/L (46-116) Total Protein 6.1 g/dL (5.7-8.2) Albumin 3.8 g/dL (3.2-4.8) Triglycerides Level 230 mg/dL (< 150) Cholesterol Level 153 mg/dL (< 200) LDL Cholesterol 85 mg/dL (< 100) HDL Cholesterol 33 mg/dL (40-59) Urine Color Light-orange (Yellow) Urine Clarity Ex.turbid (Clear) Urine pH 5.5 (5.0-9.0) Urine Specific [place] 1.025 (1.001-1.035) Urine Protein 1+ (Negative) Urine Ketones Trace (Negative) Urine Blood Trace /uL (Negative) Urine Nitrite 2+ (Negative) Urine Bilirubin Negative (Negative) Urine Urobilinogen Normal mg/dL (Negative) Urine Leukocyte Esterase 3+ /uL (Negative) Urine RBC 7 /hpf (0 - 4) Urine WBC Clumps Present /hpf (None Seen) Urine Microscopic WBC 1699 /HPF (0-5) Urine Squamous Epithelial Cells Many /hpf (<5) Urine Bacteria Few /hpf (None Seen) Urine Hyaline Casts Mod /lpf (0 - 2) Urine Mucus Few (None Seen) Urine Glucose 4+ mg/dL (Normal) Other Laboratory Tests 09/26/24 04:53 09/25/24 05:08 Brief Hx & Hospital Course: Kerline Blackburn a 59-year-old female with past medical history of diabetes mellitus, hypertension, hyperlipidemia and shortness of breath (on home oxygen- 2 liter via nasal cannula) came to the emergency department yesterday with complaints of flank pain. It started 4 days ago and was gradual in onset, non- radiating, rated 10/ 10 in intensity, associated with dysuria, vaginal itching, which worsened and prompted this visit. Patient denies any aggravating or relieving factors. she denies any chest pain, headache, dizziness, diarrhea, vomiting, nausea, fever, chills. PMH: DM, HTN PSH: Cholecystectomy, 3 C - sections, 3 back surgeries for sciatica with metal rods placed in the back Family history: reviewed noncontributory to the management of this case Social history: The patient lives at home with her son and [id number]. she denies smoking, alcohol or illicit drug abuse. Allergies: None Brief history of hospitalization: Patient came to the hospital for further evaluation of acute complicated UTI which was evident on urinalysis. Urine culture showed >100,000 CFU/ml Gram- negative hedy. IVF and Rocephin 1 g administered. Patient had vaginal candidiasis possibly due to DM for which fluconazole 200 mg 1 tablet was given. She had uncontrolled DM with HbA1c 10.8 and insulin was given a sliding scale added insulin Lantus 10 units as well. patient was hypertensive and blood pressure was monitored given amlodipine 5 mg metoprolol 25 mg and given hydralazine if SBP > 170 mmHg. Four mixed hyperlipidemia atorvastatin 20 mg was continued and dietary counseling was done. Patient had vitamin-D deficiency for which a subcutaneous dose was given. Patient counseled about not washing the vagina to many times, to keep it dry, advised to use estradiol cream. Patient counseled about taking [id number] medicine and visiting her PCP in case of vaginal discharge having cottage cheese appearance The patient's condition is stable and is hemodynamically stable to be discharged with medications as prescribed. She was counseled regarding healthy lifestyle modification and rest follow-up with PCP and discharge Clinic. Patient was counseled regarding strict glycemic control and strict adherence to medications. Pt is lying on bed General Appearance: Alert, Oriented X3, Cooperative, Not in acute distress HEENT: Atraumatic, Mucous membranes moist/pink, on 2 liters oxygen via nasal cannula Respiratory: Clear to auscultation, Normal air movement, No added sounds Cardiovascular: Regular rate, Normal S1, Normal S2, No murmurs Abdominal: Active bowel sounds, Soft, no distention, no tenderness, suprapubic and left lower quadrant tenderness present Extremities: No edema, Normal pulses, No tenderness/swelling Skin: No Significant rash, except past surgical scars Neuro: Normal speech, sensorimotor deficits none Psych/Mental Status: Mental status NL, Mood NL Vaginal: mucous membranes moist, hyperemia present, minimal white thin discharge Nurse Malorie was there as seam feller during examination Condition at Discharge: Stable Final Diagnosis/Problems List # Acute complicated UTI # Vaginal candidiasis possibly due to DM # Uncontrolled DM (HbA1c, 10.8) # Essential Hypertension # Mixed hyperlipidemia # Vit D deficiency Discharge Disposition: Home Discharge Instruct/Medications Diet: Consistent carbohydrate, Cardiac 2g Na,low cholest Activity: No Restrictions, As Tolerated Follow Up/Referral: followup with pcp Medications: Benadryl 5 mL as required and the night for 5-7 days Augmentin 875 mg 2 times daily for 10 days Estradiol crream Resume home medications Scheduled Duloxetine HCl (Duloxetine HCl), 3 CAP PO DAILY, (Reported) Enalapril Maleate (Enalapril Maleate), 1 TAB PO DAILY, (Reported) Fluconazole (Fluconazole), 150 MG PO ONCE Glipizide (Glipizide), 1 TAB PO DAILY, (Reported) Hydroxyzine Hcl (Hydroxyzine Hcl), 1 TAB PO TID, (Reported) Levofloxacin Hemihydrate (Levaquin 500 Mg), 500 MG PO DAILY Lidocaine (Ztlido), 1 PATCH TOP DAILY, (Reported) Metformin Hydrochloride (Metformin Hcl), 1 TAB PO BID, (Reported) Metoprolol Succinate (Metoprolol Succinate Er), 1 TAB PO DAILY, (Reported) Pregabalin (Pregabalin), 1 CAP PO TID, (Reported) Scheduled PRN Diclofenac Sodium (Diclofenac Sodium Ec), 1 TAB PO TID PRN for pain, (Reported) Diphenhydramine Hcl (Benadryl), 12.5 MG PO HSPRN PRN Ibuprofen Micronized (Ibuprofen), 1 TAB PO Q8HPRN PRN Ondansetron Odt 4MG Tab (Zofran Po), 1 TAB PO Q8HPRN PRN Miscellaneous Medications Amitriptyline Hcl (Amitriptyline Hcl), 1 TAB PO, (Reported) Atorvastatin Calcium (Atorvastatin Calcium), 1 TAB PO, (Reported) Baclofen (Baclofen), 1 TAB PO, (Reported) Hydrocodone-Acetaminophen (Hydrocodone Bitartrate/AC 10-300 mg), (Reported) Lidocaine Hcl (Lidocaine), TOP, (Reported) Quetiapine Fumerate (Quetiapine Fumarate), PO, (Reported) Discontinued Medications Cephalexin Monohydrate (Cephalexin), 1 CAP PO QID Discharge Statement: "Patient was advised to return to the ER or call 911 if any headaches, dizziness, shortness of breath, chest pain, abdominal pain, bleeding, fevers, or worsening of medical condition. Patient was counseled about treatment plan, medications, possible side effects, patientverbalized understanding. All questions were answered to the best of my ability. This discharge took greater then 30 minutes in planning, reviewing documentation, counseling the patient, and discussing with other team members." ASSESSMENT ASSESSMENT Assessment Acute complicated UTI Date of Service: Sep 26, 2024 Billing Provider: KERRY CARDOZO MD Common Visit Codes: 49580-[id number] DISCH DAY >30min DANIEL LATIF RESIDENT Sep 26, 2024 10:08 KERRY CARDOZO MD Sep 29, 2024 13:20
[2024-09-26] MEDS ORDERED: FLUC150T47 PO (10:10)
[2024-09-26] MEDS ORDERED: LEVO500T91 PO (10:21)
[2024-09-26 10:27] VITALS: BP 101/70; PULSE 78; RESP 18; TEMP 98.2; O2SAT 98
== END 2024-09-26 11:00 | disposition home or self-care (01) | DRG 531 ==
LOC: ER 12:51 → OVERFLOW 17:47 → TELE-EAST 22:43 → EAST 09-25 10:30
PROVIDERS: ADMIT Internal Medicine; ATTEND Emergency Medicine
DX: B37.31 Acute candidiasis of vulva and vagina (principal); E11.65 Type 2 diabetes mellitus with hyperglycemia; N39.0 Urinary tract infection, site not specified; I10 Essential (primary) hypertension; E78.5 Hyperlipidemia, unspecified; E55.9 Vitamin D deficiency, unspecified; Z90.49 Acquired absence of other specified parts of digestive tract
CPT/HCPCS: 36415; 80048; 80053; 80061; 81001; 82306; 82607; 82962; 83036; 85025; 87086; 87088; 87186; G0378; J1815; J1885; J2405; J3490; J7060